=== PATIENT | male | born 1985 | race Asian ===

== ENCOUNTER 2020-06-12 13:18 | Emergency (ER) | payer BC, OTHER ==
--- NOTE | 2020-06-12 14:17 | ER Document Report ---
ED Medical Screen (RME) - General Chief Complaint: Abdominal Pain Stated Complaint: ABDOMINAL PAIN Time Seen by Provider: 06/12/20 14:11 Primary Care Provider: TAMARA ENNIS [Primary Care Provider] - Follow up as needed Mode of Arrival: Ambulatory Information source: Patient Notes: 34-year-old male presents to ED for complaint of abdominal pain generalized. He states it is not constant but when he get up to walk the pain is very sharp at other times when he just sitting on the couch it is very sharp but it is not constant. He states the pain level is a 3/5 at this moment. He is sitting in the chair he just walked in from the lobby. He states he has had some nausea but no vomiting. He states around 1130 12:00 he ate a bologna sandwich and he did not vomit. Is alert oriented respirations regular nonlabored speaking in full sentences. States he has had diarrhea type stools since Sunday morning about 2:30 in the morning. He did take Pepto-Bismol yesterday and now today his stools are black but I explained to him the Pepto-Bismol can make his stools black. He states he ate 1 plate of food Thanksgiving dinner and a couple beers on Thanksgiving. He states at 2:30 in the morning on Sunday is when his diarrhea and abdominal pain started. I have greeted and performed a rapid initial assessment of this patient. A comprehensive ED assessment and evaluation of the patient, analysis of test results and completion of medical decision making process will be conducted by an additional ED providers. Physical Exam - Vital signs Vitals: Temp Pulse Resp BP Pulse Ox 98.6 F 62 16 130/74 H 98 06/12/20 13:54 06/12/20 13:54 06/12/20 13:54 06/12/20 13:54 06/12/20 13:54 Course - Vital Signs Vital signs: Temp Pulse Resp BP Pulse Ox 98.6 F 62 16 130/74 H 98 06/12/20 13:54 06/12/20 13:54 06/12/20 13:54 06/12/20 13:54 06/12/20 13:54 Doctor's Discharge - Discharge Referrals: TMAARA ENNIS [Primary Care Provider] - Follow up as needed
[2020-06-12 15:01] LABS: ABSOLUTE EOSINOPHILS # (AUTO) 0.2 10^3/uL (0.0-0.6); ABSOLUTE LYMPHOCYTES (AUTO) 1.4 10^3/uL (0.5-4.7); ABSOLUTE MONOCYTES (AUTO) 0.3 10^3/uL (0.1-1.4); ABSOLUTE NEUT (AUTO) 6.9 10^3/uL (1.7-8.2); BASOPHILS % (AUTO) 0.4 % (0-2); EOSINOPHILS % (AUTO) 2.1 % (0-6); HEMATOCRIT 41.1 % (37.9-51.0); HEMOGLOBIN 14.3 g/dL (13.5-17.0); LYMPHOCYTES % (AUTO) 16.2 % (13-45); MEAN CORPUSCULAR HEMOGLOBIN 30.7 pg (27.0-33.4); MEAN CORPUSCULAR HGB CONC 34.7 g/dL (32.0-36.0); MEAN CORPUSCULAR VOLUME 89 fl (80-97); MONOCYTES % (AUTO) 3.5 % (3-13); PLATELET COUNT 236 10^3/uL (150-450); RED BLOOD COUNT 4.64 10^6/uL (4.35-5.55); RED CELL DISTRIBUTION WIDTH 12.1 % (11.5-14.0); SEGMENTED NEUTROPHILS % (AUTO) 77.8 % (42-78); TOTAL CELLS COUNTED % (AUTO) 100 %; WHITE BLOOD COUNT 8.8 10^3/uL (4.0-10.5)
[2020-06-12 15:15] LABS: APPEARANCE,URINE CLEAR; BILIRUBIN,URINE NEGATIVE (NEGATIVE); COLOR,URINE STRAW; GLUCOSE, URINE NEGATIVE (NEGATIVE); KETONES,URINE NEGATIVE (NEGATIVE); LEUKOCYTE ESTERASE,URINE NEGATIVE (NEGATIVE); NITRITE,URINE NEGATIVE (NEGATIVE); PROTEIN,URINE NEGATIVE (NEGATIVE); URINE SPECIFIC GRAVITY 1.006; UROBILINOGEN,URINE NEGATIVE mg/dL (<2.0)
[2020-06-12 15:17] LABS: ALBUMIN 4.1 g/dL (3.5-5.0); ALKALINE PHOSPHATASE 53 U/L (38-126); ASPARTATE AMINO TRANSFERASE 27 U/L (17-59); BILIRUBIN,DIRECT 0.1 mg/dL (0.0-0.4); BILIRUBIN,TOTAL 0.7 mg/dL (0.2-1.3); BLOOD UREA NITROGEN 10 mg/dL (7-20); CALCIUM 9.6 mg/dL (8.4-10.2); CHLORIDE 103 mmol/L (98-107); GLUCOSE 92 mg/dL (75-110); POTASSIUM 4.2 mmol/L (3.6-5.0); TOTAL PROTEIN 6.6 g/dL (6.3-8.2)
[2020-06-12 15:23] LABS: CARBON DIOXIDE 32 mmol/L (22-30)
[2020-06-12 15:25] LABS: ANION GAP 4 (5-19)
--- NOTE | 2020-06-12 15:42 | ER Document Report ---
ED General - General Mode of Arrival: Ambulatory <FANG CALVO - Last Filed: 06/12/20 15:35> <PAT WEIR - Last Filed: 06/12/20 23:14> - General Chief Complaint: Abdominal Pain Stated Complaint: ABDOMINAL PAIN Time Seen by Provider: 06/12/20 14:11 Primary Care Provider: TICO TAPIA MD [ACTIVE STAFF] - Follow up in 3-5 days LOCALMD,NO [NO LOCAL MD] - Follow up in 3-5 days - HPI Notes: 34-year-old male presents to the emergency room today for evaluation for abdominal pain that started yesterday morning, he reports he does have some pain after eating but it is in his right lower quadrant. Has not tried any [id number] medications besides Pepto-Bismol. Denies any vomiting, reports nausea. Last bowel movement was yesterday. Denies any history of GI bleeds. Denies that pain is worse after eating. He does report that when he does heavy objects he feels some pain in his lower abdomen. Denies any testicular pain. Ur inating and defecating without any issues. Denies any black, tarry stool. Denies fevers, chills, chest pain,palpitations, shortness of breath, dyspnea, hematuria,blurred vision, double vision, loss of vision, speech changes, LH, dizziness, syncope, headaches, wheezing, ST, URI, neck pain, weakness, bowel or bladder dysfunction, saddle anesthesia, numbness or tingling in bilateral upper or lower extremities equally, muscle paralysis, weakness in bilateral upper or lower extremities equally or rash. Denies IV drug use. (FANG CALVO) - Related Data Allergies/Adverse Reactions: No Known Allergies Allergy (Unverified 06/12/20 16:54) Past Medical History - General Information source: Patient - Social History Smoking Status: Unknown if Ever Smoked Family History: Reviewed & Not Pertinent <FANG CALVO - Last Filed: 06/12/20 15:35> Review of Systems - Review of Systems Constitutional: No symptoms reported EENT: No symptoms reported Cardiovascular: No symptoms reported Respiratory: No symptoms reported Gastrointestinal: See HPI Genitourinary: No symptoms reported Male Genitourinary: No symptoms reported Musculoskeletal: No symptoms reported Skin: No symptoms reported Hematologic/Lymphatic: No symptoms reported Neurological/Psychological: No symptoms reported <FANG CALVO - Last Filed: 06/12/20 15:35> Physical Exam <FANG CALVO - Last Filed: 06/12/20 15:35> - Vital signs Vitals: Temp Pulse Resp BP Pulse Ox 98.6 F 62 16 130/74 H 98 06/12/20 13:54 06/12/20 13:54 06/12/20 13:54 06/12/20 13:54 06/12/20 13:54 - Notes Notes: MEDICATIONS: I agree with the patient medications as charted by the RN. ALLERGIES: I agree with the allergies as charted by the RN. PAST MEDICAL HISTORY/PAST SURGICAL HISTORY: Reviewed and agree as charted by RN. SOCIAL HISTORY: Reviewed and agree as charted by RN. FAMILY HISTORY: No significant familial comorbid conditions directly related to patient complaint EXAM: Reviewed vital signs as charted by RN. PHYSICAL EXAMINATION:reviewed vital signs by RN GENERAL: Well-appearing, well-nourished and in no acute distress. HEAD: Atraumatic, normocephalic. EYES: Pupils equal round and reactive to light, extraocular movements intact, sclera anicteric, conjunctiva are normal. ENT: Nares patent, oropharynx clear without exudates. Moist mucous membranes. NECK: Normal range of motion, supple without lymphadenopathy LUNGS: Breath sounds clear to auscultation bilaterally and equal. No wheezes rales or rhonchi. HEART: Regular rate and rhythm without murmurs ABDOMEN: Soft, right lower quadrant tenderness on palpation, nondistended abdomen. No guarding, no rebound. No masses appreciated. No CVA tenderness appreciated bilaterally Musculoskeletal: Normal range of motion, no pitting or edema. No cyanosis. NEUROLOGICAL: Cranial nerves grossly intact. Normal speech, normal gait. Normal sensory, motor exams PSYCH: Normal mood, normal affect. SKIN: Warm, Dry, normal turgor, no rashes or lesions noted. (FANG CALVO) Course - Laboratory Result Diagrams: 06/12/20 14:48 06/12/20 14:48 <FANG CALVO - Last Filed: 06/12/20 15:35> - Laboratory Result Diagrams: 06/12/20 14:48 06/12/20 14:48 <PAT WEIR - Last Filed: 06/12/20 23:14> - Re-evaluation Re-evalutation: 06/12/20 15:49 Afebrile vital stable no distress. Nurses notes reviewed. CBC negative for leukocytosis or anemia, CMP negative for hepatic or renal dysfunction, lipase is normal. Urinalysis is unremarkable. 06/12/20 15:49 (FANG CALVO) 06/12/20 18:00 Report received from Fang Calvo NP. Will await CT scan. Patient denies of any pain at this time. 06/12/20 19:25 CT shows possible Crohn's disease and colitis. Discussed this with the patient. States that he is not in any pain at this time. Advised him to take Tylenol as needed. He is in agreement with this plan. Also advised patient to follow-up with GI on outpatient basis. Referred him to Dr. Tapia. Follow-up precautions were given. Verbal discharge instructions were given to the patient. They ve rbalized understanding. They are stable for discharge. (PAT WEIR) - Vital Signs Vital signs: Temp Pulse Resp BP Pulse Ox 98.5 F 54 L 18 119/65 98 06/12/20 20:49 06/12/20 20:49 06/12/20 20:49 06/12/20 20:49 06/12/20 20:49 - Laboratory Laboratory results interpreted by me: 06/12/20 14:48 Carbon Dioxide 32 H Anion Gap 4 L Discharge <FANG CALVO - Last Filed: 06/12/20 15:35> <PAT WEIR - Last Filed: 06/12/20 23:14> - Discharge Clinical Impression: Colitis Abdominal pain Qualifiers: Abdominal location: right lower quadrant Qualified Code(s): R10.31 - Right lower quadrant pain Condition: Stable Disposition: HOME, SELF-CARE Additional Instructions: Colitis, Nonspecific Colitis is an inflammatory disease of the large intestine which affects the lining of the bowel. The cause is uncertain, though it is often caused by an infection. In some cases, the symptoms resolve and can return again in the future. Colitis is characterized by abdominal pain, often nausea and vomiting, and either diarrhea or difficulty with bowel movements. Sometimes blood will be present in the bowel movements. Fever is often present as well. Milder cases of colitis can be managed as an outpatient with medications for nausea and vomiting and pain, oral fluid therapy, and perhaps antibiotics, if a bacterial origin is suspected. Antidiarrhea medicine should usually be avoided in colitis. If you have increasing abdominal pain, repeated vomiting, fever, rectal bleeding, or worsening diarrhea, you should return for re-evaluation. Forms: Return to Work Referrals: LOLI,NO [NO LOCAL MD] - Follow up in 3-5 days TICO TAPIA MD [ACTIVE STAFF] - Follow up in 3-5 days
--- NOTE | 2020-06-12 20:09 | RADIOLOGY REPORT (SQ) ---
EXAM DESCRIPTION: CT ABD/PELVIS WITH IV ORAL IMAGES COMPLETED DATE/TIME: 06/12/2020 6:28 pm REASON FOR STUDY: RLQ abd pain, +nausea . No surgeries or reported history. COMPARISON: None. TECHNIQUE: CT scan of the abdomen and pelvis performed using helical scanning technique with dynamic intravenous contrast injection. No oral contrast. Images reviewed with lung, soft tissue, and bone windows. Reconstructed coronal and sagittal MPR images reviewed. Delayed images for evaluation of the urinary system also acquired. All images stored on PACS. All CT scanners at this facility use dose modulation, iterative reconstruction, and/or weight based d osing when appropriate to reduce radiation dose to as low as reasonably achievable (ALARA). [facility]: Dose Right [facility]: CareDose [facility]: Dose Right [facility]: Teradose 4D [facility]: Ayi Laile CONTRAST TYPE AND DOSE: contrast/concentration: Isovue 350.00 mmol/ml; Total Contrast Delivered: 100 .0 ml; Total Saline Delivered: 72.0 ml RENAL FUNCTION: None required. The patient is less than 50 years old. RADIATION DOSE: CT Rad equipment meets quality standard of care and radiation dose reduction techniq ues were employed. CTDIvol: 7.2 - 9.6 mGy. DLP: 988 mGy-cm.. LIMITATIONS: None. FINDINGS: LOWER CHEST: No significant findings. No nodules or infiltrates. LIVER: Liver has normal size and contour. Mild diffuse hepatic steatosis. No focal hepatic mass. H epatic and portal veins are patent. No biliary ductal dilation. SPLEEN: Normal size. No focal lesions. PANCREAS: No masses. No significant calcifications. No adjacent inflammation or peripancreatic fluid collections. Pancreatic duct not dilated. GALLBLADDER: No identified stones by CT criteria. No inflammatory changes to suggest cholecystitis. ADRENAL GLANDS: No significant masses or asymmetry. RIGHT KIDNEY AND URETER: No solid masses. No significant calcifications. No hydronephrosis or hyd roureter. LEFT KIDNEY AND URETER: No solid masses. No significant calcifications. No hydronephrosis or hydr oureter. AORTA AND VESSELS: No aneurysm. No dissection. Renal arteries, SMA, celiac without stenosis. RETROPERITONEUM: No retroperitoneal adenopathy, hemorrhage or masses. BOWEL AND PERITONEAL CAVITY: There is marked wall thickening involving the terminal ileum with surrou nding inflammatory change. The cecum and proximal ascending colon also demonstrates wall thickening and surrounding inflammatory change/fluid. No focal stricture. No evidence of fistula. No bowel ob struction. Small amount of ascites in the pelvis. No pneumoperitoneum. APPENDIX: Normal. PELVIS: No mass. No free fluid. Normal bladder. ABDOMINAL WALL: No masses. No hernias. BONES: No significant or acute findings. OTHER: No other significant finding. IMPRESSION: 1. There is thickening and inflammatory change involving the terminal ileum, cecum and proximal ascen ding colon. Findings are consistent with colitis. This can be seen in association with infectious c olitis however Crohn disease is a consideration. 2. Small amount of ascites in the pelvis is likely reactive. TECHNICAL DOCUMENTATION: JOB ID: [id number] Quality ID # [id number]: Final reports with documentation of one or more dose reduction techniques (e.g., Au tomated exposure control, adjustment of the mA and/or kV according to patient size, use of iterative reconstruction technique) 2010 [employer] ([employer])- All Rights Reserved Reading location - IP/workstation name: [email or web address]
[2020-06-12 20:52] VITALS: BP 119/65
== END 2020-06-12 20:55 | disposition home or self-care (01) ==
LOC: ER 13:18
DX: K52.9 Noninfective gastroenteritis and colitis, unspecified (principal); R18.8 Other ascites; R10.32 Left lower quadrant pain; R10.814 Left lower quadrant abdominal tenderness; R11.0 Nausea
CPT/HCPCS: 36415; 74177; 80053; 81001; 83690; 85025; 99285

== ENCOUNTER 2020-06-28 08:12 | Day surgery (SDC) | payer BC ==
[~2020-06-28 08:12] MED LIST: PROPOFOL INJ 200 MG/20 ML VIAL IV ONE
[2020-06-28 10:02] VITALS: BP 113/69
--- NOTE | 2020-06-28 11:06 | Operative Report ---
Operative Report DATE OF SURGERY: 06/28/20 Operative Report: The risk, benefits and alternatives of the procedure including the risk of bleeding, perforation requiring surgery have been explained to the patient in detail and informed consent has been obtained. The patient is taken back to the endoscopy suite and placed in left, lateral decubital position. Timeout was called. Propofol medication is administered. Rectal examination is done which did not reveal any masses, tears or fissures. An Olympus videoscope was introduced into the patient's rectum. Scope was then carefully advanced all the way to the cecum. Cecum was identified by the usual anatomical landmarks including the ileocecal valve as well as the appendiceal office. Photodocumentation is obtained. Scope was then sequentially pulled back via the various segments of the colon including the ascending colon, hepatic flexure, transverse colon, splenic flexure, descending colon and finally into the rectosigmoid portions of the colon. Retroflexion maneuver is performed. PREOPERATIVE DIAGNOSIS: Abnormal CT scan indicating possible thickening of the terminal ileum in the ascending colon POSTOPERATIVE DIAGNOSIS: Normal-appearing ascending colon and terminal ileum ,status post biopsy to rule out for microscopic evidence of Crohn's disease OPERATION: Colonoscopy with biopsy SURGEON: TICO KEITH ANESTHESIA: LMAC TISSUE REMOVED OR ALTERED: As noted above. COMPLICATIONS: None. ESTIMATED BLOOD LOSS: None. INTRAOPERATIVE FINDINGS: As noted above. PROCEDURE: Patient tolerated the procedure well. No immediate postprocedure complications are noted. Patient is discharged in good condition. Discharge date 06/28/2020. Discharge diet: Regular. Discharge activity: Regular. 2 to 3-week follow-up to discuss findings. Patient is instructed to call the office or proceed to the emergency room should there be any further problems or questions. Wait on the pathology.
== END 2020-06-28 09:55 | disposition home or self-care (01) ==
LOC: END 08:12
PROVIDERS: ATTEND Internal Medicine Gastroenterology
DX: K50.00 Crohn's disease of small intestine without complications (principal); F17.210 Nicotine dependence, cigarettes, uncomplicated
CPT/HCPCS: 45380; 88305 ×2; J2704; 811